=== PATIENT | male | born 1960 ===

== ENCOUNTER 2024-10-23 15:55 | Emergency (ER) | payer SELFPAY ==
[2024-10-23] MEDS: Succinylcholine 200 MG/10 ML MDV IV STA (15:55)
[2024-10-23] MEDS: EPINEPHrine 1:10,000 1 MG/10 ML Syringe IVPUSH ONE ×2 (15:57→16:01)
== END 2024-10-23 17:44 | disposition expired ==
LOC: MW.ED 15:55
DX: I46.9 Cardiac arrest, cause unspecified (principal)
CPT/HCPCS: 31500; 36680; 92950; 99285; G0390; J0171; J0330; 99283